=== PATIENT | female | born 1985 | race Caucasian/White ===

== ENCOUNTER 2019-12-17 10:55 | Outpatient (REF) | payer OTHER, SELFPAY ==
[2019-12-17 11:39] LABS: COVID-19 Test Negative (Negative)
== END 2019-12-17 10:56 | disposition home or self-care (01) ==
LOC: HO.LAB 10:55
PROVIDERS: PCP Nurse Practitioner; Visit Provider Internal Medicine
DX: Z20.828 Contact with and (suspected) exposure to other viral communicable diseases (principal)
CPT/HCPCS: 87635

== ENCOUNTER 2019-12-24 06:55 | Outpatient (REF) | payer OTHER, SELFPAY ==
[2019-12-24 07:27] LABS: COVID-19 Test Negative (Negative)
== END 2019-12-24 06:56 | disposition home or self-care (01) ==
LOC: HO.LAB 06:55
PROVIDERS: Visit Provider Internal Medicine
DX: Z20.828 Contact with and (suspected) exposure to other viral communicable diseases (principal)
CPT/HCPCS: 87635

== ENCOUNTER 2020-02-11 14:03 | Outpatient (REF) | payer OTHER, SELFPAY ==
[2020-02-11 14:58] LABS: COVID-19 Test Negative (Negative)
== END 2020-02-11 14:04 | disposition home or self-care (01) ==
LOC: HO.EMPCOV 14:03
PROVIDERS: PCP Nurse Practitioner; Visit Provider Internal Medicine
DX: Z20.828 Contact with and (suspected) exposure to other viral communicable diseases (principal)
CPT/HCPCS: 87635; C9803

== ENCOUNTER 2020-02-20 16:04 | Emergency (ER) | payer OTHER, SELFPAY ==
[2020-02-20 16:21] VITALS: BP 127/69; PULSE 90; RESP 16; TEMP 36.7; O2SAT 99; BMI 31.1
--- NOTE | 2020-02-20 17:00 | ED.GENADULT ---
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 She denies any chest pain shortness of breath no fever. Onset (ago): hour(s) Radiation: non-radiation Treatments prior to arrival: none Related Data Allergies Allergy/AdvReac Type Severity Reaction Status Date / Time morphine AdvReac Hallucinati Verified 02/20/20 16:23 ons Review of Systems Review of Systems: Constitutional: No Weight loss, No Fever, No Chills, No Night Sweats, No Fatigue, No Malaise ENT/Mouth: No Hearing loss, No Ear Pain, No Nasal Congestion, No Sinus Pain, No Hoarseness, No sore throat, No Rhinorrhea, No Swallowing Difficulty Eyes: No Eye Pain, No Swelling, No Redness, No Foreign Body, No Discharge, No Vision Changes Cardiovascular: No Chest Pain, No SOB, No Dyspnea on Exertion, No Orthopnea, No Edema, No Palpitations Respiratory: No Cough, No Sputum, No Wheezing No Dyspnea Gastrointestinal: No Nausea, No Vomiting, No Diarrhea, No Constipation, No abdominal Pain, No Hematochezia, No Melena Genitourinary: no irregular bleeding, No Dysuria, No Urinary Frequency, No Hematuria, No Urinary Incontinence, No Urgency, No Flank Pain, No Urinary Flow Changes Musculoskeletal: No joint pain, No Myalgias, No Joint Swelling Skin: No Skin Lesions, No rash Neuro: No Weakness, No Numbness, No Paresthesias, No Loss of Consciousness, No Dizziness, No Headache Psych: No Social Issues Heme/Lymph: No Bruising, No Bleeding,No Lymphadenopathy Endocrine: No Polyuria, No Polydipsia, No Temperature Intolerance Yes all other systems are reviewed and are negative [facility] Past Medical History Medical History (Updated 02/20/20 @ 17:32 by Yandel Mancilla NP) No known health problems Social History Social History Advance Directives: No Advance Directives Information Provided: No Physical Exam Vital Signs: Vital Signs: Last Vital Signs Temp 98.1 F 02/20/20 16:21 Pulse 90 02/20/20 16:21 Resp 16 02/20/20 16:21 BP 127/69 02/20/20 16:21 Pulse Ox 99 02/20/20 16:21 Body Mass Index 31.1 Reviewed Const: General: cooperative and healthy appearing; No acute distress or intoxicated appearing Nutritional Appearance: average body habitus Orientation/consciousness: patient oriented x3 HENMT: Head: Yes normal to inspection Ears: hearing grossly normal bilaterally Eyes: General: appearance normal, both eyes and all related structures Neck: Neck: Yes normal visual inspection Thyroid: Thyroid normal Skin: General skin exam: no rashes or lesions noted Neuro: General: patient oriented x3 Extrem: General: Yes normal to inspection Course Course Course Narrative: Medical Decision Making Lab Data Labs: Lab Results 02/20/20 Range/Units 16:24 Coronavirus (PCR) NEGATIVE (Negative) Influenza Type A (PCR) NEGATIVE (Negative) Influenza Type B (PCR) NEGATIVE (Negative) RSV RNA Qual (PCR) NEGATIVE (Negative) Discharge Plan Discharge Clinical Impression: Acute viral syndrome Patient Disposition: Home, Self-Care Instructions: Viral Syndrome (ED) Additional Instructions: Your rapid COVID test, RSV and flu test was negative Please follow institutional policy and follow [facility] with [facility] I discussed Return if any concerns or worsening symptoms Thank you Referrals: [facility] [Provider Group] - 2 days Sachin Johnson NP [Primary Care Provider] - 2 weeks (As needed)
[2020-02-20 17:16] LABS: Influenza A PCR NEGATIVE (Negative); Influenza B PCR NEGATIVE (Negative); Resp Syncy Virus RNA Qual PCR NEGATIVE (Negative); SARS COV2 PCR INHOUSE NEGATIVE (Negative)
== END 2020-02-20 17:40 | disposition home or self-care (01) ==
PROVIDERS: Nurse Practitioner Primary Care; Emergency Provider Emergency Medicine; PCP Nurse Practitioner
DX: B34.9 Viral infection, unspecified (principal); M79.10 Myalgia, unspecified site; Z20.828 Contact with and (suspected) exposure to other viral communicable diseases
CPT/HCPCS: 0241U; 99283

== ENCOUNTER 2020-03-18 09:23 | Outpatient (REF) | payer OTHER, SELFPAY ==
[2020-03-18 09:41] LABS: COVID-19 Test Negative (Negative)
== END 2020-03-18 09:24 | disposition home or self-care (01) ==
LOC: HO.LAB 09:23
PROVIDERS: Visit Provider Internal Medicine
DX: Z20.822 Contact with and (suspected) exposure to COVID-19 (principal)
CPT/HCPCS: 36415; 87635; C9803